=== PATIENT | female | born 1950 | race Caucasian/White ===

== ENCOUNTER 2022-04-09 07:39 | Observation (INO) | payer OTHER ==
[2022-04-09 08:04] VITALS: BMI 31.3
[2022-04-09] MEDS ORDERED: FAMOTIDINE 20 MG/50 ML IVPB 20 MG/50 ML MG IVPB ONE ×2 (08:24→08:47)
[2022-04-09] MEDS ORDERED: ONDANSETRON 4 MG/2 ML VIAL IVPUSH ONE (08:24)
[2022-04-09] MEDS ORDERED: LACTATED RINGERS SOLUTION 1,000 ML/1,000 ML INFUS.BAG IV SCH (08:30)
[2022-04-09] MEDS ORDERED: ONDANSETRON 4 MG/2 ML VIAL ONE (08:46)
[2022-04-09 10:08] LABS: HEMATOCRIT 38.5 % (32.4-45.2); HEMOGLOBIN 13.1 GM/dL (10.7-15.3); MCH 28.7 pg (25.7-33.7); MEAN CELL VOLUME 84.3 fl (80-96); MEAN PLT VOLUME 7.3 fl (7.5-11.1); PLATELET COUNT 217 10^3/uL (134-434); RBC 4.57 M/mm3 (3.60-5.2); RDW 13.1 % (11.6-15.6); WHITE BLOOD COUNT 9.1 K/mm3 (4.0-10.0)
[2022-04-09 10:32] LABS: ACTIVATED PTT 31.7 SECONDS (25.2-36.5); INR 0.99 (0.83-1.09); PROTHROMBIN TIME (PATIENT) 11.4 SEC (9.7-13.0)
[2022-04-09 10:37] LABS: ALBUMIN 3.7 g/dl (3.4-5.0); BLOOD UREA NITROGEN 17.5 mg/dL (7-18); CALCIUM 9.6 mg/dL (8.5-10.1)
[2022-04-09 10:40] LABS: CREATININE 0.9 mg/dL (0.55-1.3)
[2022-04-09 10:41] LABS: BILIRUBIN,TOTAL 0.9 mg/dL (0.2-1); TOT PROT 6.8 g/dl (6.4-8.2)
[2022-04-09 10:57] LABS: ANISOCYTOSIS 0; HELMET CELLS 0; HOWELL-JOLLY BODIES 0; MACROCYTOSIS 0; OVALOCYTE 0; ROULEAU 0; SICKELED CELLS 0; TARGET CELLS 0; TEAR DROP CELLS 0; TOXIC GRANULATION 0
[2022-04-09] MEDS ORDERED: ACETAMINOPHEN 1000 MG/100 ML BAG IVPB ONE (14:00)
[2022-04-09] MEDS ORDERED: ACETAMINOPHEN INJECTION 100 ML IVPB ONE (14:12)
[2022-04-09 15:00] LABS: URINE APPEARANCE CLEAR; URINE BILIRUBIN NEGATIVE (NEGATIVE); URINE COLOR YELLOW; URINE GLUCOSE (UA) 2+ (NEGATIVE); URINE KETONE TRACE (NEGATIVE); URINE LEUK ESTERASE NEGATIVE (NEGATIVE); URINE NITRITE NEGATIVE (NEGATIVE); URINE PROTEIN NEGATIVE (NEGATIVE); URINE UROBILINOGEN 0.2 mg/dL (0.2-1.0)
[2022-04-09] MEDS ORDERED: LACTATED RINGERS SOLUTION 1,000 ML/1,000 ML INFUS.BAG IV STA (15:53)
[2022-04-09] MEDS ORDERED: ONDANSETRON 4 MG/2 ML VIAL IVPUSH PRN (17:13)
[2022-04-09] MEDS ORDERED: MECLIZINE HCL 25 MG TABLET (FP) PO ONE (17:28)
[2022-04-09] MEDS ORDERED: MECLIZINE HCL 25 MG TABLET (FP) PO PRN (17:29)
[2022-04-09] MEDS ORDERED: ALBUTEROL SO4 2.5/IPRATROPIUM 0.5 INH SOL 3 ML VIAL.NEB. NEB PRN (17:35)
[2022-04-09] MEDS ORDERED: MECLIZINE HCL 25 MG TABLET (FP) ONE (21:12)
[2022-04-09] MEDS ORDERED: ENOXAPARIN NA (PORCINE) 40 MG/0.4 ML DISP.SYRIN SQ ONE (21:12)
[2022-04-09] MEDS ORDERED: PANTOPRAZOLE SODIUM 40 MG VIAL ONE (21:12)
[2022-04-09] MEDS: LACTATED RINGERS SOLUTION 1,000 ML/1,000 ML INFUS.BAG IV SCH (21:21)
[2022-04-09] MEDS: ENOXAPARIN NA (PORCINE) 40 MG/0.4 ML DISP.SYRIN SQ SCH (21:21)
[2022-04-09] MEDS: PANTOPRAZOLE SODIUM 40 MG VIAL IVPUSH SCH (21:21)
[2022-04-09] MEDS: MECLIZINE HCL 25 MG TABLET (FP) PO SCH (22:24)
[2022-04-10] MEDS: MECLIZINE HCL 25 MG TABLET (FP) PO SCH ×4 (05:45→22:53)
[2022-04-10] MEDS: INSULIN SLIDING SCALE (NOVOLOG) 1 VIAL SQ SCH ×2 (06:06→16:54)
[2022-04-10] MEDS: ENOXAPARIN NA (PORCINE) 40 MG/0.4 ML DISP.SYRIN SQ SCH (10:11)
[2022-04-10] MEDS: PANTOPRAZOLE SODIUM 40 MG VIAL IVPUSH SCH (10:12)
[2022-04-10] MEDS: LOSARTAN POTASSIUM 50 MG TABLET PO SCH (10:12)
[2022-04-10] MEDS: LACTATED RINGERS SOLUTION 1,000 ML/1,000 ML INFUS.BAG IV SCH ×2 (14:27→19:17)
[2022-04-10] MEDS ORDERED: MECLIZINE HCL 25 MG TABLET (FP) PO SCH (15:11)
[2022-04-11] MEDS: INSULIN SLIDING SCALE (NOVOLOG) 1 VIAL SQ SCH ×2 (06:43→17:05)
[2022-04-11] MEDS ORDERED: ACETAMINOPHEN 325 MG TABLET (FP) PO ONE (07:32)
[2022-04-11] MEDS: ASPIRIN COATED 81 MG TABLET.EC PO SCH (09:12)
[2022-04-11] MEDS: ALPRAZolam 0.25 MG TABLET PO PRN (09:12)
[2022-04-11] MEDS: MECLIZINE HCL 25 MG TABLET (FP) PO SCH ×4 (09:12→21:43)
[2022-04-11] MEDS: PANTOPRAZOLE 40 MG TABLET PO SCH (09:12)
[2022-04-11] MEDS: LOSARTAN POTASSIUM 50 MG TABLET PO SCH (09:12)
[2022-04-11] MEDS: ENOXAPARIN NA (PORCINE) 40 MG/0.4 ML DISP.SYRIN SQ SCH (09:13)
[2022-04-11] MEDS: POLYETHYLENE GLYCOL (HEALTHYLAX) 3350 17 GM PACKET PO SCH (09:14)
[2022-04-11] MEDS: DOCUSATE SODIUM 100 MG CAPSULE (FP) PO SCH (21:46)
[2022-04-12] MEDS ORDERED: ACETAMINOPHEN 325 MG TABLET (FP) PO PRN (05:25)
[2022-04-12] MEDS: INSULIN SLIDING SCALE (NOVOLOG) 1 VIAL SQ SCH ×2 (06:15→17:14)
[2022-04-12] MEDS: ENOXAPARIN NA (PORCINE) 40 MG/0.4 ML DISP.SYRIN SQ SCH (09:22)
[2022-04-12] MEDS: MECLIZINE HCL 25 MG TABLET (FP) PO SCH ×4 (09:22→21:29)
[2022-04-12] MEDS: PANTOPRAZOLE 40 MG TABLET PO SCH (09:22)
[2022-04-12] MEDS: POLYETHYLENE GLYCOL (HEALTHYLAX) 3350 17 GM PACKET PO SCH (09:22)
[2022-04-12] MEDS: ALPRAZolam 0.25 MG TABLET PO PRN ×2 (09:22→21:29)
[2022-04-12] MEDS: LOSARTAN POTASSIUM 50 MG TABLET PO SCH (09:22)
[2022-04-12] MEDS: ASPIRIN COATED 81 MG TABLET.EC PO SCH (09:22)
[2022-04-12] MEDS: DOCUSATE SODIUM 100 MG CAPSULE (FP) PO SCH (21:29)
[2022-04-13] MEDS: INSULIN SLIDING SCALE (NOVOLOG) 1 VIAL SQ SCH ×2 (06:25→17:19)
[2022-04-13] MEDS: ENOXAPARIN NA (PORCINE) 40 MG/0.4 ML DISP.SYRIN SQ SCH (09:26)
[2022-04-13] MEDS: PANTOPRAZOLE 40 MG TABLET PO SCH (09:27)
[2022-04-13] MEDS: POLYETHYLENE GLYCOL (HEALTHYLAX) 3350 17 GM PACKET PO SCH (09:27)
[2022-04-13] MEDS: MECLIZINE HCL 25 MG TABLET (FP) PO SCH ×4 (09:27→21:29)
[2022-04-13] MEDS: ASPIRIN COATED 81 MG TABLET.EC PO SCH (09:27)
[2022-04-13] MEDS: LOSARTAN POTASSIUM 50 MG TABLET PO SCH (09:27)
[2022-04-13] MEDS ORDERED: MINERAL OIL ENEMA 133 ML ENEMA RC ONE (09:56)
[2022-04-13] MEDS: ALPRAZolam 0.25 MG TABLET PO PRN (10:08)
[2022-04-13] MEDS: DOCUSATE SODIUM 100 MG CAPSULE (FP) PO SCH (21:29)
[2022-04-14] MEDS: INSULIN SLIDING SCALE (NOVOLOG) 1 VIAL SQ SCH (06:43)
[2022-04-14] MEDS ORDERED: IBUPROFEN 200 MG TABLET PO PRN (08:31)
[2022-04-14] MEDS: LOSARTAN POTASSIUM 50 MG TABLET PO SCH (10:40)
[2022-04-14] MEDS: MECLIZINE HCL 25 MG TABLET (FP) PO SCH ×2 (10:40→13:34)
[2022-04-14] MEDS: ASPIRIN COATED 81 MG TABLET.EC PO SCH (10:40)
[2022-04-14] MEDS: PANTOPRAZOLE 40 MG TABLET PO SCH (10:40)
[2022-04-14] MEDS: ENOXAPARIN NA (PORCINE) 40 MG/0.4 ML DISP.SYRIN SQ SCH (10:41)
[2022-04-14] MEDS: POLYETHYLENE GLYCOL (HEALTHYLAX) 3350 17 GM PACKET PO SCH (10:41)
[2022-04-14 14:20] VITALS: BP 130/72; PULSE 96; TEMP 98.1
== END 2022-04-14 15:19 | disposition home health service (06) ==
LOC: JER 07:39 → INTOOBSV 17:01 → JERBED 17:01 → UNDOADMOB 17:01 → JERBED 04-10 00:26 → J7W 04-10 00:26
PROVIDERS: ADMIT Internal Medicine; ATTEND Internal Medicine
PROC: 3E033NZ Introduction of Analgesics, Hypnotics, Sedatives into Peripheral Vein, Percutaneous Approach (ICD-10-PCS; principal; 2022-04-10)
PROC: 3E023GC Introduction of Other Therapeutic Substance into Muscle, Percutaneous Approach (ICD-10-PCS; 2022-04-10)
PROC: 3E033GC Introduction of Other Therapeutic Substance into Peripheral Vein, Percutaneous Approach (ICD-10-PCS; 2022-04-10)
PROC: 3E0337Z Introduction of Electrolytic and Water Balance Substance into Peripheral Vein, Percutaneous Approach (ICD-10-PCS; 2022-04-10)
DX: E11.42 Type 2 diabetes mellitus with diabetic polyneuropathy (principal); I10 Essential (primary) hypertension; R55 Syncope and collapse; R42 Dizziness and giddiness; R10.32 Left lower quadrant pain; Z94.89 Other transplanted organ and tissue status; R11.2 Nausea with vomiting, unspecified; Z91.013 Allergy to seafood; E66.9 Obesity, unspecified; Z68.31 Body mass index [BMI] 31.0-31.9, adult; Z29.8 Encounter for other specified prophylactic measures
CPT/HCPCS: 0241U-QW; 36415; 70450-TC; 70552-TC; 71045-TC-FY; 74176-TC; 80053; 81003; 82962; 83605; 83690; 84484; 85025; 85610; 85730; 86850; 86900; 86901; 87086; 93005; 93010; 93880-TC; 96361; 96365; 96372; 96375; 97116-GP; 97161-GP; 99285-25; A9579; G0378